=== PATIENT | male | born 1975 | race Caucasian/White ===

== ENCOUNTER 2021-12-20 21:42 | Emergency (ER) | payer MEDICAID ==
[~2021-12-20] VITALS: Ht 182.9 cm; Wt 127.3 kg
[2021-12-21 00:23] VITALS: BP 137/92
== END 2021-12-21 00:31 ==
LOC: ER 21:44
DX: Z00.8 Encounter for other general examination (principal); M79.5 Residual foreign body in soft tissue
CPT/HCPCS: 74176; 99284